=== PATIENT | male | born 1990 | race Caucasian/White ===

== ENCOUNTER 2017-08-08 22:32 | Emergency (ER) | payer BC, OTHER ==
[2017-08-08 22:38] VITALS: RESP 18
--- NOTE | 2017-08-08 22:57 | ED ---
Wound/Laceration HPI - General Chief Complaint: Wound/Laceration Stated Complaint: Finger Laceration Time Seen by Provider: 08/08/17 22:52 Source: patient, RN notes reviewed Mode of arrival: ambulatory Limitations: no limitations - History of Present Illness Initial Comments: This is a 27-year-old male who presents to the emergency department with chief complaint of left index finger laceration. Patient states that at approximately 9 PM this evening he cut the back of his left index finger on a grinding wheel. States he has normal range of motion. States he is up-to-date with his tetanus vaccination. Denies any other injuries or trauma. Denies recent fevers or chills, chest pain shortness of breath, abdominal pain, nausea or vomiting. - Related Data Home Medications Medication Instructions Recorded Confirmed No Known Home Medications [No 08/08/17 08/08/17 Known Home Medications] Allergies Allergy/AdvReac Type Severity Reaction Status Date / Time No Known Allergies Allergy Verified 08/08/17 22:38 Review of Systems ROS Statement: Those systems with pertinent positive or pertinent negative responses have been documented in the HPI. ROS Other: All systems not noted in ROS Statement are negative. Past Medical History Past Medical History: No Reported History History of Any Multi-Drug Resistant Organisms: None Reported Past Surgical History: Orthopedic Surgery Past Psychological History: No Psychological Hx Reported Smoking Status: Never smoker Past Alcohol Use History: Occasional Past Drug Use History: None Reported General Exam - General Exam Comments Initial Comments: General: Awake and alert, well-developed; in no apparent distress. HEENT: Head atraumatic, normocephalic. Pupils are equal, round and reactive to light. Extraocular movements intact. Oropharynx moist without erythema or exudate. Neck: Supple. Normal ROM. Cardiovascular: Regular rate and rhythm. No murmurs, rubs or gallops. Chest symmetrical. Respiratory: Lungs clear to auscultation bilaterally. No wheezes, rales or rhonchi. Normal respiratory effort with no use of accessory muscles. Musculoskeletal: Normal range of motion of the left index finger. Sensation is intact. Radial pulses are 2+ equal and palpable bilaterally. Skin: [place], warm and dry. There is an approximately 2.0 cm linear laceration overlying the PIP joint dorsal aspect left index finger. No active bleeding. Neurological: Alert and oriented x3. CN II-XII grossly intact. Speech is fluent and answers are appropriate. No focal neuro deficits. Psychiatric: Normal mood and affect. No overt signs of depression or anxiety noted. Limitations: no limitations Course Vital Signs 08/08/17 22:34 Temperature 98.6 F Pulse Rate 82 Respiratory 18 Rate Blood Pressure 131/88 O2 Sat by Pulse 99 Oximetry Procedures - Laceration Laceration #1 Consent Obtained: verbal consent Indication: laceration Site: hand (left index finger dorsal surface ) Size (cm): 3 Description: linear Depth: simple, single layer Anesthetic Used: lidocaine 1% Anesthesia Technique: nerve block Amount (mls): 4 Pre-repair: wound explored, irrigated extensively, deep structures intact Type of Sutures: nylon Size of Sutures: 5-0 Number of Sutures: 4 Technique: simple, interrupted Patient Tolerated Procedure: well, no complications Medical Decision Making - Medical Decision Making This is a 27-year-old male who presented to the emergency department for evaluation of left index finger laceration. Patient is up-to-date with tetanus vaccination. 4 sutures are placed and patient tolerated well without complication. He is neurovascularly intact. X-ray was obtained and revealed no acute bony abnormalities. Recommended removal of sutures in 10-14 days. Patient is in agreement with plan and voices understanding. All questions answered. He'll be discharged home at this time. He is in no acute distress. - Radiology Data Radiology results: report reviewed, image reviewed X-ray left index finger impression: Soft tissue swelling. No fracture seen. No evidence of foreign body. Disposition Clinical Impression: Finger laceration Disposition: HOME SELF-CARE Condition: Good Instructions: Finger Laceration (ED) Additional Instructions: Please have sutures removed in 10-14 days. Please follow up with primary care provider within 1-2 days. Return to emergency department if symptoms should worsen or any concerns arise. Is patient prescribed a controlled substance at d/c from ED?: No Referrals: None,Stated [Primary Care Provider] - 1-2 days Time of Disposition: 23:38
--- NOTE | 2017-08-08 23:30 | XR ---
EXAMINATION TYPE: XR finger LT DATE OF EXAM: 08/08/2017 COMPARISON: NONE HISTORY: Laceration TECHNIQUE: 3 views FINDINGS: I see no fracture nor dislocation. Joint spaces are normal. There is soft tissue swelling a t the nailbed. IMPRESSION: Soft tissue swelling. No fracture seen. No evidence of a foreign body.
[2017-08-08 23:43] VITALS: BP 107/61; PULSE 87; TEMP 98
== END 2017-08-08 23:43 | disposition home or self-care (01) ==
LOC: EC 22:32
DX: S61.211A Laceration without foreign body of left index finger without damage to nail, initial encounter (principal); W31.89XA Contact with other specified machinery, initial encounter; Y92.009 Unspecified place in unspecified non-institutional (private) residence as the place of occurrence of the external cause
CPT/HCPCS: 12002; 99283